=== PATIENT | female | born 1965 | race Caucasian/White ===

== ENCOUNTER 2017-11-22 09:20 | Observation (INO) ==
[2017-11-22] MEDS ORDERED: Isovue-370 500 ML INFUS..BTL IV ONE (10:09)
[2017-11-22] MEDS ORDERED: Acetaminophen 325 MG TABLET PO ONE (10:11)
--- NOTE | 2017-11-22 10:14 | Emergency Department Note ---
Disposition Clinical Impression: Chest pain Qualifiers: Chest pain type: unspecified Qualified Code(s): R07.9 - Chest pain, unspecified Disposition: Admitted As Inpatient Condition: Good Referrals: NONE,PCP [Primary Care Provider] - Forms: ED Satisfaction Letter Time of Disposition: 14:38 Chest Pain HPI - General Chief Complaint: ED Chest Pain Stated Complaint: CP Time Seen by Provider: 11/22/17 09:26 Source: patient Mode of arrival: ambulatory Limitations: no limitations - History of Present Illness HPI Narrative: Sheri Brewer is a 52-yo female patient with hx of htn, hld, CO with stable heart cath, stress test, and echo 1 yr ago, as well as OHS on 3L of O2 at night and DVT years ago. She is complaining of chest pain with shortness of breath for the past day. She says it began at rest, and has gradually increased over the past 24 hours to 10/10 pain. She describes it as sharp, constant pain that radiates into her left arm and neck. It is exacerbated somewhat with exertion but not with inspiration. She took nitro x3 this am without relief, as well as zofran for her nausea which helped minimally. I have re-performed and reviewed the history documented by the medical student, and I confirm its accuracy except as noted below Patient does have left calf pain as well. 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 Patient has had chest pain and shortness of breath for the past day. She has had heart catheter in the past but is 70% with blockages that do not need stented. She did take an baby aspirin at home today. Pt complaint: chest pain Onset (ago): day(s) Duration: gradually worsening Onset: during rest Pain Location: left chest Severity: severe Severity scale (1-10): 10 Quality: sharp Pain Radiation: LUE, neck Improves with: nothing Worsens with: exertion Context: history of DVT/PE Associated symptoms: Reports: nausea, diaphoresis, dyspnea, palpitations, leg swelling Treatments prior to arrival chest pain: nitroglycerin - Related Data Home Medications Medication Instructions Recorded Confirmed Aspirin [Lo-Dose Aspirin EC] 81 mg PO DAILY 03/08/17 11/22/17 Celecoxib [Celebrex] 200 mg PO BID 03/08/17 11/22/17 Meclizine HCl [Verticalm] 25 mg PO DAILY PRN 03/08/17 11/22/17 Metformin HCl [Glucophage] 1,000 mg PO BID 03/08/17 11/22/17 Metoprolol [Lopressor] 50 mg PO BID 03/08/17 11/22/17 Omeprazole [PriLOSEC] 40 mg PO DAILY 03/08/17 11/22/17 Oxygen 3 l NS HS 03/08/17 11/22/17 Ranolazine [Ranexa] 500 mg PO BID 03/08/17 11/22/17 Atorvastatin Calcium [Lipitor] 20 mg PO HS 11/22/17 11/22/17 Baclofen [Lioresal] 10 mg PO TID PRN 11/22/17 11/22/17 Isosorbide MONOnitrate (24 HR) 30 mg PO DAILY 11/22/17 11/22/17 [Imdur] Lisinopril [Zestril] 10 mg PO DAILY 11/22/17 11/22/17 Ondansetron HCl [Ondansetron HCl] 8 mg PO DAILY PRN 11/22/17 11/22/17 OxyCODONE/APAP 10/325 [Percocet 1 tab PO DAILY PRN 11/22/17 11/22/17 10/325 MG] Oxybutynin [Ditropan] 5 mg PO TID 11/22/17 11/22/17 Sertraline [Zoloft] 50 mg PO DAILY 11/22/17 11/22/17 glyBURIDE [GlyBURIDE] 5 mg PO DAILY 11/22/17 Previous Rx's Medication Instructions Recorded Lidocaine Patch [Lidoderm 5% patch] 1 each TP DAILY #6 adh..patch 10/25/17 Allergies Allergy/AdvReac Type Severity Reaction Status Date / Time Cyclobenzaprine Allergy Rash Verified 11/22/17 12:19 [From Flexeril] latex Allergy Hives Verified 11/22/17 12:19 propoxyphene Allergy Rash Verified 11/22/17 12:19 [From Darvocet-N] tramadol [From Ultram] Allergy Rash Verified 11/22/17 12:19 atropine [From Urised] AdvReac Blister Verified 11/22/17 12:19 Benzoic Acid [From Urised] AdvReac Blister Verified 11/22/17 12:19 esomeprazole [From Nexium] AdvReac Gastrointestinal Verified 11/22/17 12:19 Upset Hyoscyamine [From Urised] AdvReac Blister Verified 11/22/17 12:19 ibuprofen [From Motrin] AdvReac Itching Verified 11/22/17 12:19 methenamine [From Urised] AdvReac Blister Verified 11/22/17 12:19 methylene blue [From Urised] AdvReac Blister Verified 11/22/17 12:19 Oxaprozin [From Daypro] AdvReac Gastrointestinal Verified 11/22/17 12:19 Upset salicylates [From Urised] AdvReac Blister Verified 11/22/17 12:19 GI coctail Allergy Swelling Uncoded 11/22/17 12:19 of Lip/Tongue/Throat contrast dye AdvReac Hives Uncoded 11/22/17 12:19 Constitutional: Reports: weakness. Denies: fever, chills Cardiovascular: Reports: chest pain, palpitations, dyspnea on exertion, edema. Denies: orthopnea, syncope Respiratory: Reports: dyspnea. Denies: cough, wheezes, hemoptysis, sputum production Gastrointestinal: Reports: nausea. Denies: abdominal pain, vomiting, diarrhea, constipation Genitourinary: Denies: urgency, dysuria, frequency, hematuria Neurological: Reports: headache, weakness, numbness Chest Pain PMH - Past Medical History Medical history: Reports: COPD, coronary artery disease, DVT, diabetes, hyperlipidemia, hypertension, myocardial infarction Surgical history: Reports: other (3x abdominal hernia repair) Psychiatric history: Reports: anxiety, depression Prior Cardiac Testing/Procedures: Echocardiogram, Stress Test, CTA Chest/CTA Coronary Angiography [employer] history: Reports: bilateral tubal ligation - Social History Smoking Status: Never smoker Alcohol use: Reports: none Drug use: Reports: none Physical Exam - General Limitations: no limitations General appearance: alert, lethargic, obese - Head Head exam: normal inspection - Eye Eye exam: Present: normal appearance - ENT ENT exam: mucous membranes dry - Chest Chest inspection: Present: normal inspection - Respiratory Respiratory exam: Present: normal lung sounds bilaterally - Cardiovascular Cardiovascular exam: Present: regular rate, normal rhythm - Abdominal Exam Abdominal exam: Present: soft, Non-Tender, distention, normal bowel sounds - Extremities Exam Extremities exam: Present: calf tenderness (Left calf) - Expanded Lower Extremity Exam Ankle exam: Present: normal inspection - Neurological Exam Neurological exam: Present: alert, oriented X3, CN II-XII intact - Psychiatric Psychiatric exam: Present: flat affect - Skin Skin exam: Present: warm, diaphoresis Course Course Narrative: 52-year-old female presented to the emergency department complaining of chest pain. Due to patient also having Pain we did we will do a bedside ultrasound looking for DVT. CT angiogram of chest to rule out pulmonary was not. We will do basic labs including CBC, BMP, troponin. Well-seated EKG and chest x-ray. We will give patient aspirin nitroglycerin did not help with her pain. Also give patient Toradol for pain control - Consultations Consultation #1: Spoke with the on-call hospitalist Dr. Chin who agreed to admit the patient to their service. Patient met in stable condition Time: 14:38 Vital Signs Temperature 99.8 F H 11/22/17 09:29 Pulse Rate 76 11/22/17 09:29 Respiratory Rate 18 11/22/17 09:29 Blood Pressure 133/90 11/22/17 09:29 O2 Sat by Pulse Oximetry 99 11/22/17 09:29 Temperature 99.8 F H 11/22/17 09:35 Pulse Rate 73 11/22/17 10:54 Respiratory Rate 14 11/22/17 10:54 Blood Pressure 116/77 11/22/17 10:54 O2 Sat by Pulse Oximetry 99 11/22/17 10:54 Oxygen Delivery Oxygen Delivery Nasal Cannula Chest Pain - [facility] Narrative Medical decision making narrative: 52-year-old female presented here with chest pain as well as left leg pain. CT Vi chest was negative for pulmonary embolism. We did do a bedside ultrasound of DVT which did not show any signs of DVT. Patient's troponin was negative EKG had no acute changes. Patient had continued chest pain. It was given nitroglycerin and aspirin. Patient said that her chest pain is still there. Due to patient's cardiac history of having heart catheterization with possible blockages but not requiring stent we felt admission for chest pain rule out would be necessary. Patient agrees with this plan. I spoke with the hospitalist who agreed to make the patient to their service. Patient is admitted in stable condition. [id number] ED DVT ultrasound: Using the linear probe looked at the left for moral veins as well as the popliteal veins both demonstrated full compressibility without evidence of intramural thrombus these were followed already down the leg and there still is no thrombus and were completely compressible. These images were captured, recorded and are coverage. Impression: Based on this clinical ultrasound there is no evidence of DVT in the common for moral veins, superficial femoral veins, deep femoral veins, greater saphenous veins or popliteal veins on the left side. Chest X-Ray 11/22/17 10:07 IMPRESSION: 1. No acute cardiopulmonary disease. D/ / 11/22/2017 11:15:48 Maia Gtz MD / Jory Keen Interpreting Provider: Maia Gtz MD Chest CTA 11/22/17 10:08 IMPRESSION: No evidence of pulmonary embolism or acute pulmonary abnormality. Hepatic steatosis D/ / Pedro Delong MD / Pedro Delong MD Interpreting Provider: Pedro Delong MD - Medical Records Medical records reviewed: Yes I reviewed the patient's medical records. - Lab Data Lab results reviewed: Yes I reviewed the patient's lab results. Result diagrams: 11/22/17 09:48 11/22/17 09:48 Lab Results 11/22/17 11/22/17 11/22/17 Range/Units 09:48 09:48 09:48 WBC 5.8 (4.3-11.1) K/mcL RBC 4.77 (3.82-4.97) M/mcL Hgb 13.4 (11.5-15.4) g/dL Hct 39.5 (35.3-44.9) % MCV 82.8 L (83.0-100.0) fL MCH 28.1 (28.0-33.3) pg MCHC 33.9 (31.6-35.5) g/dL RDW 17.2 H (11.5-14.5) % Plt Count 156 (140-400) K/mcL MPV 10.5 (9.4-12.4) fL Immature Gran % 1.0 (0-4) % Seg Neutrophils % 81.0 % Lymphocytes % 9.6 % Monocytes % 7.9 % Eosinophils % 0.3 % Basophils % 0.2 % Neutrophils # 4.7 (1.6-8.9) K/mcL Lymphocytes # 0.6 (0.6-4.6) K/mcL Monocytes # 0.5 (0.0-1.3) K/mcL Eosinophils # 0.0 (0.0-0.6) K/mcL Basophils # 0.0 (0.0-0.2) K/mcL PT (9.4-12.1) Seconds INR Sodium 134 L (136-145) mEq/L Potassium 3.9 (3.5-5.1) mEq/L Chloride 99 (98-107) mEq/L Carbon Dioxide 25 (23-29) mEq/L BUN 11 (6-20) mg/dL Creatinine 0.68 (0.60-1.20) mg/dL Est GFR ( Amer) > 60 (> 60) Est GFR (Non-Af Amer) > 60 (> 60) BUN/Creatinine Ratio 16 (6-26) Glucose 297 H (70-105) mg/dL Calculated Osmolality 288 (280-300) Calcium 9.1 (8.6-10.3) mg/dL Magnesium 1.6 (1.6-2.6) mg/dL Troponin I < 0.03 (< 0.04) ng/mL B-Natriuretic Peptide 42 (Less than 100) pg/mL 11/22/17 Range/Units 09:48 WBC (4.3-11.1) K/mcL RBC (3.82-4.97) M/mcL Hgb (11.5-15.4) g/dL Hct (35.3-44.9) % MCV (83.0-100.0) fL MCH (28.0-33.3) pg MCHC (31.6-35.5) g/dL RDW (11.5-14.5) % Plt Count (140-400) K/mcL MPV (9.4-12.4) fL Immature Gran % (0-4) % Seg Neutrophils % % Lymphocytes % % Monocytes % % Eosinophils % % Basophils % % Neutrophils # (1.6-8.9) K/mcL Lymphocytes # (0.6-4.6) K/mcL Monocytes # (0.0-1.3) K/mcL Eosinophils # (0.0-0.6) K/mcL Basophils # (0.0-0.2) K/mcL PT 12.8 H (9.4-12.1) Seconds INR 1.1 Sodium (136-145) mEq/L Potassium (3.5-5.1) mEq/L Chloride (98-107) mEq/L Carbon Dioxide (23-29) mEq/L BUN (6-20) mg/dL Creatinine (0.60-1.20) mg/dL Est GFR ( Amer) (> 60) Est GFR (Non-Af Amer) (> 60) BUN/Creatinine Ratio (6-26) Glucose (70-105) mg/dL Calculated Osmolality (280-300) Calcium (8.6-10.3) mg/dL Magnesium (1.6-2.6) mg/dL Troponin I (< 0.04) ng/mL B-Natriuretic Peptide (Less than 100) pg/mL - Radiology Data Radiology results reviewed: Yes I reviewed the patient's radiology results. - EKG Data EKG attestation: Yes I reviewed and interpreted this EKG. EKG results narrative: EKG done at 0 936 review myself and attending shows sinus rhythm at a rate of 74 , AK interval 170, QRS 81, QTC 423. No acute ST changes no acute T-wave changes no other signs of ischemia. No signs of heart block, hypertrophy, heart strain. No WPW/Brugada/HOCM. Overall this EKG is unchanged when compared with old one done 10/25/17 Heart Score - Score History: Moderately Suspicious EKG: Non Specific repolarisation Disturbance Age: 45-65 Risk Factors: 1-2 risk factors Troponin: Less than normal limit HEART Score Total: 4
[2017-11-22 10:18] LABS: Basophils % 0.2 %; Eosinophils % 0.3 %; Hematocrit 39.5 % (35.3-44.9); Hemoglobin 13.4 g/dL (11.5-15.4); Lymphocytes # 0.6 K/mcL (0.6-4.6); Lymphocytes % 9.6 %; Mean Corpuscular HGB Conc 33.9 g/dL (31.6-35.5); Mean Corpuscular Hemoglobin 28.1 pg (28.0-33.3); Mean Corpuscular Volume 82.8 fL (83.0-100.0); Mean Platelet Volume 10.5 fL (9.4-12.4); Monocytes # 0.5 K/mcL (0.0-1.3); Monocytes % 7.9 %; Neutrophils # 4.7 K/mcL (1.6-8.9); Platelet Count 156 K/mcL (140-400); Red Blood Count 4.77 M/mcL (3.82-4.97); Red Cell Distribution Width 17.2 % (11.5-14.5)
[2017-11-22 10:27] LABS: INR 1.1; Prothrombin Time 12.8 Seconds (9.4-12.1)
[2017-11-22 10:29] LABS: BUN/Creatinine Ratio 16 (6-26); Blood Urea Nitrogen 11 mg/dL (6-20); Calcium 9.1 mg/dL (8.6-10.3); Carbon Dioxide 25 mEq/L (23-29); Chloride 99 mEq/L (98-107); Glucose 297 mg/dL (70-105); Magnesium 1.6 mg/dL (1.6-2.6); Osmolality,Calculated 288 (280-300); Potassium 3.9 mEq/L (3.5-5.1); Sodium 134 mEq/L (136-145); Troponin I < 0.03 ng/mL (< 0.04); eGFR For Non-African Americans > 60 (> 60)
[2017-11-22] MEDS ORDERED: Aspirin 325 MG TABLET PO ONE (10:34)
--- NOTE | 2017-11-22 13:03 | Emergency Department Note ---
Disposition Clinical Impression: Chest pain Qualifiers: Chest pain type: unspecified Qualified Code(s): R07.9 - Chest pain, unspecified Disposition: Admitted As Inpatient Condition: Good Time of Disposition: 15:06 General Adult HPI - General Chief complaint: ED Chest Pain Stated complaint: CP Time Seen by Provider: 11/22/17 09:26 Source: patient Mode of arrival: ambulatory Limitations: no limitations - History of Present Illness Pain Scale: 10 - Related Data Home Medications Medication Instructions Recorded Confirmed Aspirin [Lo-Dose Aspirin EC] 81 mg PO DAILY 03/08/17 11/22/17 Celecoxib [Celebrex] 200 mg PO BID 03/08/17 11/22/17 Meclizine HCl [Verticalm] 25 mg PO DAILY PRN 03/08/17 11/22/17 Metformin HCl [Glucophage] 1,000 mg PO BID 03/08/17 11/22/17 Metoprolol [Lopressor] 50 mg PO BID 03/08/17 11/22/17 Omeprazole [PriLOSEC] 40 mg PO DAILY 03/08/17 11/22/17 Oxygen 3 l NS HS 03/08/17 11/22/17 Ranolazine [Ranexa] 500 mg PO BID 03/08/17 11/22/17 Atorvastatin Calcium [Lipitor] 20 mg PO HS 11/22/17 11/22/17 Baclofen [Lioresal] 10 mg PO TID PRN 11/22/17 11/22/17 Isosorbide MONOnitrate (24 HR) 30 mg PO DAILY 11/22/17 11/22/17 [Imdur] Lisinopril [Zestril] 10 mg PO DAILY 11/22/17 11/22/17 Ondansetron HCl [Ondansetron HCl] 8 mg PO DAILY PRN 11/22/17 11/22/17 OxyCODONE/APAP 10/325 [Percocet 1 tab PO DAILY PRN 11/22/17 11/22/17 10/325 MG] Oxybutynin [Ditropan] 5 mg PO TID 11/22/17 11/22/17 Sertraline [Zoloft] 50 mg PO DAILY 11/22/17 11/22/17 glyBURIDE [GlyBURIDE] 5 mg PO DAILY 11/22/17 Previous Rx's Medication Instructions Recorded Lidocaine Patch [Lidoderm 5% patch] 1 each TP DAILY #6 adh..patch 10/25/17 Allergies Allergy/AdvReac Type Severity Reaction Status Date / Time Cyclobenzaprine Allergy Rash Verified 11/22/17 12:19 [From Flexeril] latex Allergy Hives Verified 11/22/17 12:19 propoxyphene Allergy Rash Verified 11/22/17 12:19 [From Darvocet-N] tramadol [From Ultram] Allergy Rash Verified 11/22/17 12:19 atropine [From Urised] AdvReac Blister Verified 11/22/17 12:19 Benzoic Acid [From Urised] AdvReac Blister Verified 11/22/17 12:19 esomeprazole [From Nexium] AdvReac Gastrointestinal Verified 11/22/17 12:19 Upset Hyoscyamine [From Urised] AdvReac Blister Verified 11/22/17 12:19 ibuprofen [From Motrin] AdvReac Itching Verified 11/22/17 12:19 methenamine [From Urised] AdvReac Blister Verified 11/22/17 12:19 methylene blue [From Urised] AdvReac Blister Verified 11/22/17 12:19 Oxaprozin [From Daypro] AdvReac Gastrointestinal Verified 11/22/17 12:19 Upset salicylates [From Urised] AdvReac Blister Verified 11/22/17 12:19 GI coctail Allergy Swelling Uncoded 11/22/17 12:19 of Lip/Tongue/Throat contrast dye AdvReac Hives Uncoded 11/22/17 12:19 Constitutional: Reports: weakness. Denies: fever, chills Cardiovascular: Reports: chest pain, palpitations, dyspnea on exertion, edema. Denies: orthopnea, syncope Respiratory: Reports: dyspnea. Denies: cough, wheezes, hemoptysis, sputum production Gastrointestinal: Reports: nausea. Denies: abdominal pain, vomiting, diarrhea, constipation Genitourinary: Denies: urgency, dysuria, frequency, hematuria Neurological: Reports: headache, weakness, numbness Past Medical History - Past Medical History Medical history: Reports: COPD, coronary artery disease, DVT, diabetes, hyperlipidemia, hypertension, myocardial infarction Surgical history: Reports: other (3x abdominal hernia repair) Psychiatric history: Reports: anxiety, depression [employer] history: Reports: bilateral tubal ligation - Social History Smoking Status: Never smoker Smokeless Tobacco Status: No Alcohol use: Reports: none Drug use: Reports: none Physical Exam - General Limitations: no limitations General appearance: alert, lethargic, obese Course Vital Signs Temperature 99.8 F H 11/22/17 09:29 Pulse Rate 76 11/22/17 09:29 Respiratory Rate 18 11/22/17 09:29 Blood Pressure 133/90 11/22/17 09:29 O2 Sat by Pulse Oximetry 99 11/22/17 09:29 Temperature 99.8 F H 11/22/17 09:35 Pulse Rate 74 11/22/17 14:39 Respiratory Rate 20 11/22/17 14:39 Blood Pressure 136/87 11/22/17 14:39 O2 Sat by Pulse Oximetry 99 11/22/17 14:39 Oxygen Delivery Oxygen Delivery Nasal Cannula Medical Decision Making - Lab Data Result diagrams: 11/22/17 09:48 11/22/17 09:48 Lab Results 11/22/17 11/22/17 11/22/17 Range/Units 09:48 09:48 09:48 WBC 5.8 (4.3-11.1) K/mcL RBC 4.77 (3.82-4.97) M/mcL Hgb 13.4 (11.5-15.4) g/dL Hct 39.5 (35.3-44.9) % MCV 82.8 L (83.0-100.0) fL MCH 28.1 (28.0-33.3) pg MCHC 33.9 (31.6-35.5) g/dL RDW 17.2 H (11.5-14.5) % Plt Count 156 (140-400) K/mcL MPV 10.5 (9.4-12.4) fL Immature Gran % 1.0 (0-4) % Seg Neutrophils % 81.0 % Lymphocytes % 9.6 % Monocytes % 7.9 % Eosinophils % 0.3 % Basophils % 0.2 % Neutrophils # 4.7 (1.6-8.9) K/mcL Lymphocytes # 0.6 (0.6-4.6) K/mcL Monocytes # 0.5 (0.0-1.3) K/mcL Eosinophils # 0.0 (0.0-0.6) K/mcL Basophils # 0.0 (0.0-0.2) K/mcL PT (9.4-12.1) Seconds INR Sodium 134 L (136-145) mEq/L Potassium 3.9 (3.5-5.1) mEq/L Chloride 99 (98-107) mEq/L Carbon Dioxide 25 (23-29) mEq/L BUN 11 (6-20) mg/dL Creatinine 0.68 (0.60-1.20) mg/dL Est GFR ( Amer) > 60 (> 60) Est GFR (Non-Af Amer) > 60 (> 60) BUN/Creatinine Ratio 16 (6-26) Glucose 297 H (70-105) mg/dL Calculated Osmolality 288 (280-300) Calcium 9.1 (8.6-10.3) mg/dL Magnesium 1.6 (1.6-2.6) mg/dL Troponin I < 0.03 (< 0.04) ng/mL B-Natriuretic Peptide 42 (Less than 100) pg/mL 11/22/17 Range/Units 09:48 WBC (4.3-11.1) K/mcL RBC (3.82-4.97) M/mcL Hgb (11.5-15.4) g/dL Hct (35.3-44.9) % MCV (83.0-100.0) fL MCH (28.0-33.3) pg MCHC (31.6-35.5) g/dL RDW (11.5-14.5) % Plt Count (140-400) K/mcL MPV (9.4-12.4) fL Immature Gran % (0-4) % Seg Neutrophils % % Lymphocytes % % Monocytes % % Eosinophils % % Basophils % % Neutrophils # (1.6-8.9) K/mcL Lymphocytes # (0.6-4.6) K/mcL Monocytes # (0.0-1.3) K/mcL Eosinophils # (0.0-0.6) K/mcL Basophils # (0.0-0.2) K/mcL PT 12.8 H (9.4-12.1) Seconds INR 1.1 Sodium (136-145) mEq/L Potassium (3.5-5.1) mEq/L Chloride (98-107) mEq/L Carbon Dioxide (23-29) mEq/L BUN (6-20) mg/dL Creatinine (0.60-1.20) mg/dL Est GFR ( Amer) (> 60) Est GFR (Non-Af Amer) (> 60) BUN/Creatinine Ratio (6-26) Glucose (70-105) mg/dL Calculated Osmolality (280-300) Calcium (8.6-10.3) mg/dL Magnesium (1.6-2.6) mg/dL Troponin I (< 0.04) ng/mL B-Natriuretic Peptide (Less than 100) pg/mL Attestation Statement - Attestation Attestation: I examined this patient and my medical decision-making was reviewed with the Resident Physician. I agree with the documented findings, disposition and treatment plan as described except to the extent set forth below. 52 year old mary presntes to the ED with cmplaints of chest pain and has multiple risk factors for ACS and states that it is exertional in nature and she has risk for PE/DVTs. We will obtain cardiopulmonary labs and CTA chest with DVT US due to complaints of leg pain and swelling. Bedside US shows collapsible veins although she does have an aggressive fungal melasma appearance ot her groin that is likely chronic. Patient will likely be addmited for chest pain rule out workup even if CTA if neagetive
--- NOTE | 2017-11-22 16:36 | Internal Med History&Physical ---
Date of Encounter: 11/22/17 Time of Encounter: 16:00 Internal Medicine - H&P: HPI Chief complaint: chest pain Admitted From: Home History of present illness: Patient is a 52-year-old female with past medical history significant for diabetes, hyperlipidemia and mood disorder in addition to questionable history of coronary arterial disease who presents to the ER on 11/22/17 due to chest pain. Patient reports that substernal chest pain with a severity of 10 out 10, woke her up in the middle of the morning and described as sharp, radiating down her left arm. Patient reports that exertion made discomfort worse and was improved by 3 nitroglycerin. Patient also reported of associated symptoms of diaphoresis. She was concerned so decided come to ER for evaluation. ER, patients first set of cardiac biomarkers were negative. Patient will be admitted to medical surgical floor for ACS rule out. Past Med Surg Social Fam HX - Past Medical History Medical history: COPD, coronary artery disease, DVT, diabetes, hyperlipidemia, hypertension, myocardial infarction Additional medical history: heart problems. chronic back pain. left knee loose body with stress response Psychiatric history: anxiety, depression - Past Surgical History Surgical History: other (3x abdominal hernia repair) Additional surgical history: tubal ligation. left rotator cuff. Several hernias. b/l foot. adenoids removed - Social History Smoking Status: Never smoker Smokeless Tobacco Status: No Alcohol use: none Drug use: none - Family History Father Hx Family Cardiac Disorders: Yes (Father with coronary arterial disease) Internal Medicine - H&P: Meds Aspirin [Lo-Dose Aspirin EC] 81 mg PO DAILY 03/08/17 [History] Celecoxib [Celebrex] 200 mg PO BID 03/08/17 [History] Meclizine HCl [Verticalm] 25 mg PO DAILY PRN 03/08/17 [History] Metformin HCl [Glucophage] 1,000 mg PO BID 03/08/17 [History] Metoprolol [Lopressor] 50 mg PO BID 03/08/17 [History] Omeprazole [PriLOSEC] 40 mg PO DAILY 03/08/17 [History] Oxygen 3 l NS HS 03/08/17 [History] Ranolazine [Ranexa] 500 mg PO BID 03/08/17 [History] Lidocaine Patch [Lidoderm 5% patch] 1 each TP DAILY #6 adh..patch 10/25/17 [Rx] Atorvastatin Calcium [Lipitor] 20 mg PO HS 11/22/17 [History] Baclofen [Lioresal] 10 mg PO TID PRN 11/22/17 [History] Isosorbide MONOnitrate (24 HR) [Imdur] 30 mg PO DAILY 11/22/17 [History] Lisinopril [Zestril] 10 mg PO DAILY 11/22/17 [History] Ondansetron HCl [Ondansetron HCl] 8 mg PO DAILY PRN 11/22/17 [History] OxyCODONE/APAP 10/325 [Percocet 10/325 MG] 1 tab PO DAILY PRN 11/22/17 [History] Oxybutynin [Ditropan] 5 mg PO TID 11/22/17 [History] Sertraline [Zoloft] 50 mg PO DAILY 11/22/17 [History] glyBURIDE [GlyBURIDE] 5 mg PO DAILY 11/22/17 [History] 3 Allergy/AdvReac Type Severity Reaction Status Date / Time Cyclobenzaprine Allergy Rash Verified 11/22/17 12:19 [From Flexeril] latex Allergy Hives Verified 11/22/17 12:19 propoxyphene Allergy Rash Verified 11/22/17 12:19 [From Darvocet-N] tramadol [From Ultram] Allergy Rash Verified 11/22/17 12:19 atropine [From Urised] AdvReac Blister Verified 11/22/17 12:19 Benzoic Acid [From Urised] AdvReac Blister Verified 11/22/17 12:19 esomeprazole [From Nexium] AdvReac Gastrointestinal Verified 11/22/17 12:19 Upset Hyoscyamine [From Urised] AdvReac Blister Verified 11/22/17 12:19 ibuprofen [From Motrin] AdvReac Itching Verified 11/22/17 12:19 methenamine [From Urised] AdvReac Blister Verified 11/22/17 12:19 methylene blue [From Urised] AdvReac Blister Verified 11/22/17 12:19 Oxaprozin [From Daypro] AdvReac Gastrointestinal Verified 11/22/17 12:19 Upset salicylates [From Urised] AdvReac Blister Verified 11/22/17 12:19 GI coctail Allergy Swelling Uncoded 11/22/17 12:19 of Lip/Tongue/Throat contrast dye AdvReac Hives Uncoded 11/22/17 12:19 All Systems PM: A 10-system review of systems was performed and is negative for pertinent findings except as documented above in the HPI. - Constitutional Vitals: Temp Pulse Resp BP Pulse Ox 98.5 F 72 18 125/78 98 11/22/17 16:09 11/22/17 16:09 11/22/17 16:09 11/22/17 16:09 11/22/17 16:09 General appearance: Present: A&O X 3, no acute distress Exam: As below - Eye Eye exam: Present: normal appearance - ENT ENT exam: Present: mucous membranes moist - Respiratory Respiratory exam: Present: CTAB. Absent: accessory muscle use, rales, rhonchi, wheezes - Cardiovascular Cardiovascular exam: Present: RRR, +S1, +S2. Absent: diastolic murmur, gallop, rubs, systolic murmur - GI/Abdominal GI/Abdominal exam: Present: normal bowel sounds, soft, no peritoneal signs. Absent: distended, tenderness - Extremities Exam Extremities exam: Absent: pedal edema - Neurological Exam Neurological exam: Present: oriented X3 - Psychiatric Psychiatric exam: Present: normal mood - Skin Skin exam: Present: normal color Internal Med - H&P Results - Labs CBC & Chem 7: 11/22/17 09:48 11/22/17 09:48 - Assessment and plan (1) Chest pain Current Visit: Yes Status: Acute Assessment and plan: Patient with a one-day history of substernal chest pain. First set of cardiac biomarkers negative in the ER. Will trend serial cardiac biomarkers and monitor on telemetry. Will order echocardiogram in addition to nuclear medicine stress test. Qualifiers: Chest pain type: unspecified Qualified Code(s): R07.9 - Chest pain, unspecified (2) CAD (coronary artery disease) Current Visit: Yes Status: Acute Assessment and plan: Patient reports a history of multivessel disease but denies any coronary stents or history of CABG. Patient reports her manager intensive care unit is Dr. Dean at [facility]; records requested. ACS rule out as above Qualifiers: Associated angina: angina presence unspecified Qualified Code(s): I25.10 - Atherosclerotic heart disease of [place] coronary artery without angina pectoris (3) Diabetes Current Visit: Yes Status: Acute Assessment and plan: Blood glucose levels within normal limits Will hold metformin and glyburide and cover with sliding scale insulin. 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
[2017-11-22] MEDS ORDERED: Naloxone 0.4 MG/ML INJ IVP PRN (16:44)
[2017-11-22] MEDS ORDERED: Dextrose Gel 15 GM/37.5 ML TUBE PO PRN ×2 (16:46)
[2017-11-22] MEDS ORDERED: *HR* Dextrose 50 % in Water (Syg) 50 ML SYRINGE IVP PRN (16:46)
[2017-11-22] MEDS ORDERED: D5% in Water 1,000 ML IVC PRN (16:46)
[2017-11-22] MEDS ORDERED: *HR* OxyCODONE/APAP 10/325 TABLET PO PRN (16:47)
[2017-11-22] MEDS: Ondansetron ODT 4 MG TAB.RAPDIS PO PRN (18:55)
[2017-11-22] MEDS ORDERED: Perflutren Lipid Microsphere 1.3 ML in 0.9 % Sodium Chloride 8.7 ML IVP ONE (18:59)
[2017-11-22] MEDS ORDERED: NON-FORMULARY MEDICATION 1 EACH EACH (Oxygen [Oxygen] 3 L) NS SCH (21:00)
[2017-11-22] MEDS ORDERED: Celecoxib 200 MG CAPSULE PO SCH (21:00)
[2017-11-22] MEDS ORDERED: Nystatin POWDER 30 GM BOTTLE TP SCH (21:00)
[2017-11-22] MEDS ORDERED: Ranolazine 500 MG TAB.ER.12H PO SCH (21:00)
[2017-11-22] MEDS ORDERED: Insulin LISPRO 300 UNITS/3 ML VIAL SQ SCH (21:00)
[2017-11-22] MEDS: Baclofen 10 MG TABLET PO PRN (23:19)
[2017-11-23] MEDS ORDERED: *HR* OxyCODONE/APAP 5/325 TABLET PO ONE (01:13)
[2017-11-23] MEDS: Baclofen 10 MG TABLET PO PRN (04:24)
[2017-11-23] MEDS ORDERED: Regadenoson 0.4 MG/5 ML SYRINGE IVP ONE (05:49)
[2017-11-23 07:10] VITALS: BP 155/97
[2017-11-23] MEDS ORDERED: Insulin LISPRO 300 UNITS/3 ML VIAL SQ SCH (07:30)
[2017-11-23] MEDS: Ondansetron ODT 4 MG TAB.RAPDIS PO PRN (08:09)
--- NOTE | 2017-11-23 08:12 | Discharge Summary ---
- NOTES TO OUTPATIENT PROVIDER Notes to Outpatient Provider: Follow-up with primary care provider Orders not resulted at time of discharge: Pending orders 11/23/17 07:00 SP pharm nuclear stress Routine Date of Encounter: 11/23/17 Time of Encounter: 08:00 - Discharge Diagnosis (1) Chest pain Priority: Primary Status: Acute Qualifiers: Chest pain type: unspecified Qualified Code(s): R07.9 - Chest pain, unspecified (2) CAD (coronary artery disease) Priority: Secondary Status: Acute Qualifiers: Associated angina: angina presence unspecified Qualified Code(s): I25.10 - Atherosclerotic heart disease of [place] coronary artery without angina pectoris (3) Diabetes Priority: Secondary Status: Acute 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; 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 Patient reports that substernal chest pain with a severity of 10 out 10, woke her up in the middle of the morning and described as sharp, radiating down her left arm. Patient reports that exertion made discomfort worse and was improved by 3 nitroglycerin. Patient also reported of associated symptoms of diaphoresis. She was concerned so decided come to ER for evaluation. ER, patients first set of cardiac biomarkers were negative. Patient will be admitted to medical surgical floor for ACS rule out. During patients hospital stay her cardiac biomarkers were negative. Patient was scheduled for nuclear medicine stress tests but decided that she did not want to have the test done due to issues with chronic back pain. She will be discharged to follow-up with her primary care provider for follow-up. - Time Spent with Patient Total time spent providing and/or coordinating discharge services: - Discharge Medications Home Medications: Aspirin [Lo-Dose Aspirin EC] 81 mg PO DAILY 03/08/17 [History] Celecoxib [Celebrex] 200 mg PO BID 03/08/17 [History] Meclizine HCl [Verticalm] 25 mg PO DAILY PRN 03/08/17 [History] Metformin HCl [Glucophage] 1,000 mg PO BID 03/08/17 [History] Metoprolol [Lopressor] 50 mg PO BID 03/08/17 [History] Omeprazole [PriLOSEC] 40 mg PO DAILY 03/08/17 [History] Oxygen 3 l NS HS 03/08/17 [History] Ranolazine [Ranexa] 500 mg PO BID 03/08/17 [History] Lidocaine Patch [Lidoderm 5% patch] 1 each TP DAILY #6 adh..patch 10/25/17 [Rx] Atorvastatin Calcium [Lipitor] 20 mg PO HS 11/22/17 [History] Baclofen [Lioresal] 10 mg PO TID PRN 11/22/17 [History] Isosorbide MONOnitrate (24 HR) [Imdur] 30 mg PO DAILY 11/22/17 [History] Lisinopril [Zestril] 10 mg PO DAILY 11/22/17 [History] Ondansetron HCl 8 mg PO DAILY PRN 11/22/17 [History] OxyCODONE/APAP 10/325 [Percocet 10/325 MG] 1 tab PO DAILY PRN 11/22/17 [History] Oxybutynin [Ditropan] 5 mg PO TID 11/22/17 [History] Sertraline [Zoloft] 50 mg PO DAILY 11/22/17 [History] glyBURIDE [GlyBURIDE] 5 mg PO DAILY 11/22/17 [History] Allergies/Adverse Reactions: 3 Allergy/AdvReac Type Severity Reaction Status Date / Time Cyclobenzaprine Allergy Rash Verified 11/22/17 12:19 [From Flexeril] latex Allergy Hives Verified 11/22/17 12:19 propoxyphene Allergy Rash Verified 11/22/17 12:19 [From Darvocet-N] tramadol [From Ultram] Allergy Rash Verified 11/22/17 12:19 atropine [From Urised] AdvReac Blister Verified 11/22/17 12:19 Benzoic Acid [From Urised] AdvReac Blister Verified 11/22/17 12:19 esomeprazole [From Nexium] AdvReac Gastrointestinal Verified 11/22/17 12:19 Upset Hyoscyamine [From Urised] AdvReac Blister Verified 11/22/17 12:19 ibuprofen [From Motrin] AdvReac Itching Verified 11/22/17 12:19 methenamine [From Urised] AdvReac Blister Verified 11/22/17 12:19 methylene blue [From Urised] AdvReac Blister Verified 11/22/17 12:19 Oxaprozin [From Daypro] AdvReac Gastrointestinal Verified 11/22/17 12:19 Upset salicylates [From Urised] AdvReac Blister Verified 11/22/17 12:19 GI coctail Allergy Swelling Uncoded 11/22/17 12:19 of Lip/Tongue/Throat contrast dye AdvReac Hives Uncoded 11/22/17 12:19 Date of admission: 11/22/17 14:33 Primary care physician: PCP NONE - Constitutional Vitals: Temp Pulse Resp BP Pulse Ox 98.2 F 79 16 155/97 95 11/23/17 07:02 11/23/17 07:02 11/23/17 07:02 11/23/17 07:02 11/23/17 07:02 General appearance: Present: A&O X 3, no acute distress Exam: see below - Patient Status Disposition: Home, Self-Care Condition: Good - Discharge Instructions Instructions: Chest Pain (DC), Diabetes Mellitus Type 2 in Adults (DC) Follow Up With: Agusto Mendez DO [Resident] - 11/28/17 3:00 pm
[2017-11-23] MEDS ORDERED: Aspirin Enteric Coated 81 MG Tablet PO SCH (09:00)
[2017-11-23] MEDS ORDERED: Isosorbide MONOnitrate (24 HR) 30 MG TAB.ER.24H PO SCH (09:00)
--- NOTE | 2017-11-26 12:40 | Electrocardiograph Report ---
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
== END 2017-11-23 10:23 | disposition home or self-care (01) ==
LOC: 3BNU 09:20 → EMEROOARM 09:20 → SUATTDRO 14:33 → 3BNU 15:25
PROVIDERS: ADMIT Student in an Organized Health Care Education/Training Program; ATTEND Hospitalist

== ENCOUNTER 2020-07-31 19:24 | Inpatient (IN) ==
[2020-07-31] MEDS ORDERED: Aspirin 81 MG TAB.CHEW PO ONE (19:34)
[2020-07-31] MEDS ORDERED: *HR* FentaNYL (PF) 100 MCG/2 ML VIAL IVP ONE ×2 (19:52→22:37)
[2020-07-31] MEDS ORDERED: Isovue-370 500 ML BOTTLE IVP ONE (19:55)
[2020-07-31 19:56] LABS: Basophils % 0.4 %; Eosinophils # 0.1 K/mcL (0.0-0.6); Eosinophils % 1.5 %; Hematocrit 37.6 % (35.3-44.9); Hemoglobin 11.8 g/dL (11.5-15.4); Immature Granulocytes % 0.6 % (0-4); Lymphocytes # 1.3 K/mcL (0.6-4.6); Mean Corpuscular HGB Conc 31.4 g/dL (31.6-35.5); Mean Corpuscular Hemoglobin 24.7 pg (28.0-33.3); Mean Corpuscular Volume 78.8 fL (83.0-100.0); Mean Platelet Volume 9.3 fL (9.4-12.4); Monocytes # 0.5 K/mcL (0.0-1.3); Neutrophils # 4.8 K/mcL (1.6-8.9); Platelet Count 222 K/mcL (140-400); Red Blood Count 4.77 M/mcL (3.82-4.97); Red Cell Distribution Width 18.6 % (11.5-14.5); Segmented Neutrophils % 71.5 %; White Blood Count 6.7 K/mcL (4.3-11.1)
[2020-07-31] MEDS ORDERED: methylPREDNISolone 125 MG/2 ML VIAL IVP ONE (19:57)
[2020-07-31 20:04] LABS: INR 1.1; Prothrombin Time 12.8 Seconds (9.4-12.1)
[2020-07-31 20:06] LABS: Activated Partial Thrombo Time 28.7 Seconds (26.0-36.0)
[2020-07-31 20:16] LABS: BUN/Creatinine Ratio 15 (6-26); Blood Urea Nitrogen 14 mg/dL (6-20); Calcium 9.4 mg/dL (8.6-10.3); Carbon Dioxide 25 mEq/L (23-29); Chloride 102 mEq/L (98-107); Glucose 193 mg/dL (70-105); Osmolality,Calculated 290 (280-300); Sodium 137 mEq/L (136-145); eGFR For African Americans > 60 (> 60); eGFR For Non-African Americans > 60 (> 60)
[2020-07-31 20:17] LABS: Troponin I < 0.03 ng/mL (< 0.04)
[2020-07-31] MEDS ORDERED: cefTRIAXone 1,000 MG in Water for inj. (sterile) 10 ML IVP ONE (22:25)
[2020-07-31] MEDS ORDERED: *HR* OxyCODONE/APAP 10/325 TABLET PO ONE (22:31)
[2020-07-31] MEDS ORDERED: 0.9 % Sodium Chloride 1,000 ML IVC ONE (22:51)
[2020-07-31 23:07] LABS: Bilirubin,Urine Negative (Negative); Blood,Urine Trace (Negative); Budding Yeast,Urine Few per hpf (None Seen); Clarity,Urine Turbid (Clear); Color,Urine Light-Yellow (Yellow); Glucose,Urine (UA) >=1000 mg/dL (Normal); Ketones,Urine Negative (Negative); Leukocyte Esterase,Urine Large (Negative); Nitrite,Urine Negative (Negative); Protein,Urine Trace mg/dL (Neg-Trace); RBC,Urine 50-100 per hpf (0-3); Specific Gravity,Urine > 1.030 (1.010-1.025); Squamous Epithelial Cell,Urine Few per hpf (None-Few); Urobilinogen,Urine Normal (Normal); WBC,Urine TNTC per hpf (0-3)
[2020-07-31 23:28] LABS: Albumin 3.7 g/dL (3.5-5.7); Bilirubin,Direct 0.1 mg/dL (0.0-0.2); Bilirubin,Indirect 0.4 mg/dL (0.0-1.0); Bilirubin,Total 0.5 mg/dL (0.3-1.0); Globulin 3.6 g/dL (2.4-3.5); Total Protein 7.3 g/dL (6.4-8.9)
[2020-08-01] MEDS ORDERED: Nitroglycerin 0.4 MG TAB.SUBL SL PRN (00:42)
[2020-08-01] MEDS ORDERED: Morphine Sulfate 2 MG/ML SYRINGE IVP PRN (00:43)
[2020-08-01] MEDS ORDERED: Dextrose Gel 15 GM/37.5 ML TUBE PO PRN ×2 (00:47)
[2020-08-01] MEDS ORDERED: *HR* Dextrose 50 % in Water (Vial) 50 ML VIAL IVP PRN (00:47)
[2020-08-01] MEDS ORDERED: D5% in Water 1,000 ML IVC PRN (00:47)
[2020-08-01] MEDS ORDERED: Naloxone 0.4 MG/ML INJ IVP PRN (00:48)
[2020-08-01] MEDS ORDERED: Ondansetron 4 MG/2 ML VIAL IVP PRN (00:48)
[2020-08-01] MEDS ORDERED: Perflutren Lipid Microsphere 1.3 ML in 0.9 % Sodium Chloride 8.7 ML IVP PRN (00:53)
[2020-08-01] MEDS ORDERED: 0.9 % Sodium Chloride 1,000 ML IVC SCH (02:15)
[2020-08-01 02:25] LABS: Hematocrit 35.6 % (35.3-44.9); Hemoglobin 11.1 g/dL (11.5-15.4); Mean Corpuscular HGB Conc 31.2 g/dL (31.6-35.5); Mean Corpuscular Hemoglobin 24.3 pg (28.0-33.3); Mean Corpuscular Volume 78.1 fL (83.0-100.0); Mean Platelet Volume 10.1 fL (9.4-12.4); Platelet Count 224 K/mcL (140-400); Red Blood Count 4.56 M/mcL (3.82-4.97); Red Cell Distribution Width 18.6 % (11.5-14.5); White Blood Count 8.3 K/mcL (4.3-11.1)
[2020-08-01 02:33] LABS: % Iron Saturation 10 % (15-50); BUN/Creatinine Ratio 18 (6-26); Blood Urea Nitrogen 14 mg/dL (6-20); Calcium 8.9 mg/dL (8.6-10.3); Carbon Dioxide 23 mEq/L (23-29); Chloride 102 mEq/L (98-107); Chol/HDL Ratio 5.3 (0-4.9); Cholesterol 154 mg/dL (< 200); Glucose 210 mg/dL (70-105); HDL Cholesterol 29 mg/dL (40-59); Iron 36 mcg/dL (50-170); LDL Cholesterol,Calculated 65 mg/dL (< 100); Magnesium 1.9 mg/dL (1.6-2.6); Osmolality,Calculated 287 (280-300); Sodium 135 mEq/L (136-145); Transferrin 259 mg/dL (203-362); Triglycerides 301 mg/dL (< 150); eGFR For African Americans > 60 (> 60); eGFR For Non-African Americans > 60 (> 60)
[2020-08-01 02:46] LABS: Thyroid Stimulating Hormone 0.575 mcIU/mL (0.340-5.600)
[2020-08-01 02:52] LABS: Ferritin 192 ng/mL (10-120)
[2020-08-01 04:05] LABS: Estimated Average Glucose 217 mg/dl; Hemoglobin A1C 9.2 %
[2020-08-01] MEDS: *HR* Heparin 5,000 UNIT/ML VIAL SQ SCH ×3 (04:38→19:40)
[2020-08-01] MEDS: Insulin LISPRO 300 UNITS/3 ML VIAL SUBQ SCH ×3 (05:49→17:24)
[2020-08-01] MEDS ORDERED: Regadenoson 0.4 MG/5 ML SYRINGE IVP ONE (08:45)
[2020-08-01] MEDS: Acetaminophen 325 MG TABLET PO PRN ×2 (09:23→19:40)
[2020-08-01] MEDS: Aspirin Enteric Coated 81 MG Tablet PO SCH (09:23)
[2020-08-01] MEDS: cefTRIAXone 1,000 MG in Water for inj. (sterile) 10 ML IVP SCH (12:22)
[2020-08-01] MEDS ORDERED: cefTRIAXone 1,000 MG in 0.9 % Sodium Chloride Mini Bag 100 ML IVPB SCH (22:30)
[2020-08-02] MEDS: Insulin LISPRO 300 UNITS/3 ML VIAL SUBQ SCH ×4 (01:00→17:30)
[2020-08-02] MEDS: Acetaminophen 325 MG TABLET PO PRN (02:15)
[2020-08-02] MEDS ORDERED: *HR* HYDROcodone/Acet 7.5/325 mg TABLET PO ONE (05:16)
[2020-08-02] MEDS: *HR* Heparin 5,000 UNIT/ML VIAL SQ SCH ×3 (05:43→19:56)
[2020-08-02 06:02] LABS: Basophils % 0.1 %; Eosinophils % 0.5 %; Hematocrit 37.6 % (35.3-44.9); Hemoglobin 12.1 g/dL (11.5-15.4); Immature Granulocytes % 0.3 % (0-4); Lymphocytes # 1.2 K/mcL (0.6-4.6); Mean Corpuscular HGB Conc 32.2 g/dL (31.6-35.5); Mean Corpuscular Hemoglobin 24.9 pg (28.0-33.3); Mean Corpuscular Volume 77.4 fL (83.0-100.0); Mean Platelet Volume 9.3 fL (9.4-12.4); Monocytes # 0.5 K/mcL (0.0-1.3); Monocytes % 6.5 %; Neutrophils # 5.7 K/mcL (1.6-8.9); Platelet Count 236 K/mcL (140-400); Red Blood Count 4.86 M/mcL (3.82-4.97); Red Cell Distribution Width 19.1 % (11.5-14.5); Segmented Neutrophils % 76.6 %; White Blood Count 7.4 K/mcL (4.3-11.1)
[2020-08-02 06:24] LABS: BUN/Creatinine Ratio 21 (6-26); Blood Urea Nitrogen 17 mg/dL (6-20); Calcium 9.3 mg/dL (8.6-10.3); Carbon Dioxide 26 mEq/L (23-29); Chloride 102 mEq/L (98-107); Glucose 247 mg/dL (70-105); Osmolality,Calculated 294 (280-300); Potassium 3.5 mEq/L (3.5-5.1); Sodium 137 mEq/L (136-145); eGFR For African Americans > 60 (> 60); eGFR For Non-African Americans > 60 (> 60)
[2020-08-02] MEDS ORDERED: hydrOXYzine pamoate 25 MG CAPSULE PO PRN (07:38)
[2020-08-02] MEDS: Ranolazine 500 MG TAB.ER.12H PO SCH ×2 (08:49→19:56)
[2020-08-02] MEDS: cefTRIAXone 1,000 MG in Water for inj. (sterile) 10 ML IVP SCH (08:49)
[2020-08-02] MEDS: Aspirin Enteric Coated 81 MG Tablet PO SCH (08:50)
[2020-08-02] MEDS: Fenofibrate 54 MG TABLET PO SCH (08:50)
[2020-08-02] MEDS: Metoprolol 100 MG TABLET PO SCH ×2 (08:50→19:55)
[2020-08-02] MEDS: Isosorbide MONOnitrate (24 HR) 30 MG TAB.ER.24H PO SCH (08:50)
[2020-08-02] MEDS: hydroCHLOROthiazide 25 MG TABLET PO SCH (08:50)
[2020-08-02] MEDS: Pregabalin 50 MG CAPSULE PO SCH ×2 (08:50→19:56)
[2020-08-02] MEDS: Venlafaxine XR (24 HR) 75 MG CAP.ER.24H PO SCH (08:50)
[2020-08-02] MEDS: *HR* OxyCODONE/APAP 10/325 TABLET PO SCH ×3 (08:50→19:55)
[2020-08-02] MEDS: lisinopriL 10 MG TABLET PO SCH (08:51)
[2020-08-02 10:12] LABS: Bacteria,Urine Few per hpf (None-Few); Bilirubin,Urine Negative (Negative); Blood,Urine Small (Negative); Clarity,Urine Turbid (Clear); Color,Urine Light-Yellow (Yellow); Glucose,Urine (UA) >=1000 mg/dL (Normal); Ketones,Urine Negative (Negative); Leukocyte Esterase,Urine Large (Negative); Mucus,Urine Few per lpf (None-Few); Nitrite,Urine Negative (Negative); PH,Urine 7.5 pH Units (5.0-8.0); Protein,Urine Trace mg/dL (Neg-Trace); RBC,Urine 50-100 per hpf (0-3); Specific Gravity,Urine 1.016 (1.010-1.025); Squamous Epithelial Cell,Urine Few per hpf (None-Few); Urobilinogen,Urine Normal (Normal); WBC,Urine TNTC per hpf (0-3)
[2020-08-03] MEDS: Insulin LISPRO 300 UNITS/3 ML VIAL SUBQ SCH ×4 (00:28→15:56)
[2020-08-03] MEDS ORDERED: *HR* HYDROcodone/Acet 5/325 mg TABLET PO ONE (04:55)
[2020-08-03] MEDS: *HR* Heparin 5,000 UNIT/ML VIAL SQ SCH ×3 (05:07→20:59)
[2020-08-03] MEDS: Aspirin Enteric Coated 81 MG Tablet PO SCH (08:06)
[2020-08-03] MEDS: Isosorbide MONOnitrate (24 HR) 30 MG TAB.ER.24H PO SCH (08:06)
[2020-08-03] MEDS: Metoprolol 100 MG TABLET PO SCH ×2 (08:07→20:57)
[2020-08-03] MEDS: Ranolazine 500 MG TAB.ER.12H PO SCH ×2 (08:07→20:56)
[2020-08-03] MEDS: hydroCHLOROthiazide 25 MG TABLET PO SCH (08:07)
[2020-08-03] MEDS: Venlafaxine XR (24 HR) 75 MG CAP.ER.24H PO SCH (08:07)
[2020-08-03] MEDS: Pregabalin 50 MG CAPSULE PO SCH ×2 (08:08→20:57)
[2020-08-03] MEDS: *HR* OxyCODONE/APAP 10/325 TABLET PO SCH ×3 (08:08→20:56)
[2020-08-03] MEDS: cefTRIAXone 1,000 MG in Water for inj. (sterile) 10 ML IVP SCH (08:09)
[2020-08-03] MEDS: Fenofibrate 54 MG TABLET PO SCH (08:09)
[2020-08-03] MEDS: lisinopriL 10 MG TABLET PO SCH (08:09)
[2020-08-03] MEDS ORDERED: Piperacillin/Tazobactam 3.375 GM in 0.9 % Sodium Chloride Mini Bag 100 ML IVPB ONE (10:12)
[2020-08-03] MEDS ORDERED: 0.9 % Sodium Chloride 1,000 ML IVC SCH (10:30)
[2020-08-03] MEDS ORDERED: Isovue-370 500 ML BOTTLE IVP ONE (10:32)
[2020-08-03] MEDS ORDERED: methylPREDNISolone 125 MG/2 ML VIAL IVP ONE (11:09)
[2020-08-03] MEDS ORDERED: Piperacillin/Tazobactam 3.375 GM in 0.9 % Sodium Chloride Mini Bag 100 ML IVPB SCH (16:00)
[2020-08-03] MEDS: Piperacillin/Tazobactam 3.375 GM in 0.9 % Sodium Chloride Mini Bag 100 ML IVPB SCH (16:07)
[2020-08-03] MEDS ORDERED: Insulin LISPRO 300 UNITS/3 ML VIAL SUBQ ONE (20:07)
[2020-08-04] MEDS: Piperacillin/Tazobactam 3.375 GM in 0.9 % Sodium Chloride Mini Bag 100 ML IVPB SCH ×3 (00:15→15:35)
[2020-08-04] MEDS: Insulin LISPRO 300 UNITS/3 ML VIAL SUBQ SCH ×4 (00:26→18:10)
[2020-08-04 00:57] LABS: Hematocrit 37.8 % (35.3-44.9); Hemoglobin 12.2 g/dL (11.5-15.4); Mean Corpuscular HGB Conc 32.3 g/dL (31.6-35.5); Mean Corpuscular Hemoglobin 24.6 pg (28.0-33.3); Mean Corpuscular Volume 76.4 fL (83.0-100.0); Mean Platelet Volume 9.1 fL (9.4-12.4); Platelet Count 244 K/mcL (140-400); Red Blood Count 4.95 M/mcL (3.82-4.97); Red Cell Distribution Width 18.3 % (11.5-14.5); White Blood Count 7.3 K/mcL (4.3-11.1)
[2020-08-04 01:17] LABS: BUN/Creatinine Ratio 24 (6-26); Blood Urea Nitrogen 20 mg/dL (6-20); Calcium 9.5 mg/dL (8.6-10.3); Carbon Dioxide 23 mEq/L (23-29); Chloride 98 mEq/L (98-107); Glucose 316 mg/dL (70-105); Magnesium 2.1 mg/dL (1.6-2.6); Osmolality,Calculated 289 (280-300); Potassium 4.3 mEq/L (3.5-5.1); Sodium 132 mEq/L (136-145); eGFR For African Americans > 60 (> 60); eGFR For Non-African Americans > 60 (> 60)
[2020-08-04] MEDS: *HR* Heparin 5,000 UNIT/ML VIAL SQ SCH ×3 (05:37→19:52)
[2020-08-04] MEDS: hydroCHLOROthiazide 25 MG TABLET PO SCH (09:37)
[2020-08-04] MEDS: Venlafaxine XR (24 HR) 75 MG CAP.ER.24H PO SCH (09:37)
[2020-08-04] MEDS: *HR* OxyCODONE/APAP 10/325 TABLET PO SCH ×3 (09:38→19:51)
[2020-08-04] MEDS: lisinopriL 10 MG TABLET PO SCH (09:38)
[2020-08-04] MEDS: Pregabalin 50 MG CAPSULE PO SCH ×2 (09:38→19:52)
[2020-08-04] MEDS: Aspirin Enteric Coated 81 MG Tablet PO SCH (09:38)
[2020-08-04] MEDS: Fenofibrate 54 MG TABLET PO SCH (09:38)
[2020-08-04] MEDS: Metoprolol 100 MG TABLET PO SCH ×2 (09:38→19:52)
[2020-08-04] MEDS: Ranolazine 500 MG TAB.ER.12H PO SCH ×2 (09:38→19:52)
[2020-08-04] MEDS: Isosorbide MONOnitrate (24 HR) 30 MG TAB.ER.24H PO SCH (09:39)
[2020-08-04] MEDS ORDERED: Insulin LISPRO 300 UNITS/3 ML VIAL SUBQ SCH (21:00)
[2020-08-04] MEDS ORDERED: Insulin DETEMIR 100 UNIT/ML X5UNITS SUBQ SCH (21:00)
[2020-08-05] MEDS ORDERED: *HR* HYDROcodone/Acet 5/325 mg TABLET PO PRN (00:25)
[2020-08-05 00:40] LABS: Hematocrit 38.5 % (35.3-44.9); Hemoglobin 12.2 g/dL (11.5-15.4); Mean Corpuscular HGB Conc 31.7 g/dL (31.6-35.5); Mean Corpuscular Hemoglobin 24.9 pg (28.0-33.3); Mean Corpuscular Volume 78.6 fL (83.0-100.0); Mean Platelet Volume 9.2 fL (9.4-12.4); Platelet Count 241 K/mcL (140-400); Red Cell Distribution Width 18.4 % (11.5-14.5); White Blood Count 9.1 K/mcL (4.3-11.1)
[2020-08-05] MEDS: Piperacillin/Tazobactam 3.375 GM in 0.9 % Sodium Chloride Mini Bag 100 ML IVPB SCH (00:55)
[2020-08-05 01:08] LABS: BUN/Creatinine Ratio 23 (6-26); Blood Urea Nitrogen 23 mg/dL (6-20); Carbon Dioxide 22 mEq/L (23-29); Chloride 97 mEq/L (98-107); Glucose 382 mg/dL (70-105); Osmolality,Calculated 291 (280-300); Potassium 4.1 mEq/L (3.5-5.1); Sodium 131 mEq/L (136-145); eGFR For African Americans > 60 (> 60); eGFR For Non-African Americans 57 (> 60)
[2020-08-05] MEDS ORDERED: Morphine Sulfate 2 MG/ML SYRINGE IVP ONE (02:36)
[2020-08-05] MEDS: *HR* Heparin 5,000 UNIT/ML VIAL SQ SCH (05:51)
[2020-08-05] MEDS ORDERED: Insulin LISPRO 300 UNITS/3 ML VIAL SUBQ SCH (07:30)
[2020-08-05] MEDS: hydroCHLOROthiazide 25 MG TABLET PO SCH (08:40)
[2020-08-05] MEDS: Pregabalin 50 MG CAPSULE PO SCH (08:40)
[2020-08-05] MEDS: Metoprolol 100 MG TABLET PO SCH (08:40)
[2020-08-05] MEDS: Fenofibrate 54 MG TABLET PO SCH (08:40)
[2020-08-05] MEDS: *HR* OxyCODONE/APAP 10/325 TABLET PO SCH ×2 (08:41→14:19)
[2020-08-05] MEDS: Isosorbide MONOnitrate (24 HR) 30 MG TAB.ER.24H PO SCH (08:41)
[2020-08-05] MEDS: lisinopriL 10 MG TABLET PO SCH (08:41)
[2020-08-05] MEDS: Ranolazine 500 MG TAB.ER.12H PO SCH (08:41)
[2020-08-05] MEDS: Venlafaxine XR (24 HR) 75 MG CAP.ER.24H PO SCH (08:41)
[2020-08-05] MEDS: Aspirin Enteric Coated 81 MG Tablet PO SCH (08:41)
[2020-08-05 09:14] VITALS: BP 106/72
== END 2020-08-05 14:27 | disposition home or self-care (01) | DRG 463 ==
LOC: 3BNU 19:24 → EMEROOARM 19:24 → SUATTDRO 22:53 → 3BNU 23:50
PROVIDERS: ADMIT Internal Medicine; ATTEND Internal Medicine